=== PATIENT | female | born 1950 | race Caucasian/White ===

== ENCOUNTER 2023-06-24 09:57 | Outpatient (CLI) | payer MEDICARE, SELFPAY ==
--- NOTE | ~2023-06-24 | XR_ITS ---
Right Knee Technique: AP, lateral, and sunrise views were obtained. Clinical History: Pain Findings: No fracture or dislocation is seen. Osseous alignment is anatomic. There is minimal tricomp artmental spurring. Soft tissues are unremarkable. No joint effusion is seen. Impression: Minimal tricompartmental degenerative spurring. Reviewed, dictated and finalized at [facility]. [facility]ER Impression: Minimal tricompartmental degenerative spurring.
--- NOTE | ~2023-06-24 | XR_ITS ---
Left Knee Technique: AP, lateral, and sunrise views were obtained. Clinical History: Pain Findings: No fracture or dislocation is seen. Osseous alignment is anatomic. There is minimal spurrin g of the patella and intercondylar notch. Soft tissues are unremarkable. No joint effusion is seen. Impression: Minimal degenerative spurring, as above. Reviewed, dictated and finalized at location . [employer] Impression: Minimal degenerative spurring, as above.
== END 2023-06-24 09:58 | disposition home or self-care (01) ==
LOC: ANHIMG 10:07
PROVIDERS: PCP Internal Medicine; Visit Provider Physician Assistant Surgical
DX: M25.561 Pain in right knee (principal); M25.562 Pain in left knee
CPT/HCPCS: 73564

== ENCOUNTER 2025-05-24 10:37 | Outpatient (CLI) | payer MEDICARE, SELFPAY ==
--- NOTE | ~2025-05-24 | MR_ITS ---
EXAM/PROCEDURE: MR shoulder RT wo con HISTORY: M75.41 - Impingement syndrome of right shoulder COMPARISON: X-rays from April 26 TECHNIQUE: Multiplanar noncontrast enhanced right shoulder MRI performed. FINDINGS: No fracture subluxation or dislocation. 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 There is mild compression/deformity along the bursal margin of the myotendinous junction of the supraspinatus tendon seen on images 10 and 11 of series 7. There is also slight contour deformity of the superior aspect of the tendon in this level. Trace amount of fluid is present in the subacromial bursa. The subscapularis tendon appears thickened on image 10 series 3 leading into its insertion. The infraspinatus and teres minor tendons appear intact. No full- thickness tear of the rotator cuff identified. The acromion curves along the lateral margin, type II or type III. No definite labral tear on this non arthrographic series. The long head of the biceps tendon is intact within the bicipital groove and superior labral attachment appears intact. Spinoglenoid recess and suprascapular notch regions appear normal. 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 No acute findings. Reviewed, dictated and finalized at location A. 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 No acute findings.
== END 2025-05-24 10:38 | disposition home or self-care (01) ==
LOC: MICIMG 10:37
PROVIDERS: PCP Internal Medicine; Visit Provider Physician Assistant Surgical
DX: M75.41 Impingement syndrome of right shoulder (principal)
CPT/HCPCS: 73221